=== PATIENT | male | born 1955 | race Caucasian/White ===

== ENCOUNTER 2020-06-13 16:44 | Observation (INO) | payer OTHER, MEDICARE ==
[~2020-06-13] VITALS: Ht 180.3 cm; Wt 131.5 kg
[2020-06-13] MEDS ORDERED: ALBU90OI INH (17:20)
[2020-06-13] MEDS ORDERED: ASCO500 PO (17:21)
[2020-06-13] MEDS ORDERED: CARV3.125 PO (17:21)
[2020-06-13] MEDS ORDERED: ATOR80 PO (17:21)
[2020-06-13] MEDS ORDERED: ELIQUIS5 MG PO (17:21)
[2020-06-13] MEDS ORDERED: ZYRTEC10 M2 PO (17:22)
[2020-06-13] MEDS ORDERED: Vitamin D2000 UNIT PO (17:22)
[2020-06-13] MEDS ORDERED: JARDIANCE25 MG PO (17:23)
[2020-06-13] MEDS ORDERED: FERSU300 PO (17:23)
[2020-06-13] MEDS ORDERED: CYAN500 PO (17:23)
[2020-06-13] MEDS ORDERED: FURO20 PO (17:24)
[2020-06-13] MEDS ORDERED: GABA300 PO (17:24)
[2020-06-13] MEDS ORDERED: FOLI1 PO (17:24)
[2020-06-13] MEDS ORDERED: OMEP20ER PO (17:26)
[2020-06-13] MEDS ORDERED: METF500 PO (17:26)
[2020-06-13] MEDS ORDERED: LISI20 PO (17:26)
[2020-06-13] MEDS ORDERED: TRAZ100 PO (17:27)
[2020-06-13] MEDS ORDERED: POTCHL20ER PO (17:27)
[2020-06-13] MEDS ORDERED: VENL150ER PO (17:27)
[2020-06-13] MEDS ORDERED: BASAGLAR K100 UNIT/1 SC ×2 (18:00→18:01)
[2020-06-13] MEDS ORDERED: NOVOLOG FL100 UNIT/3 SC (18:00)
[2020-06-13] MEDS ORDERED: Naltrexone HCl50 MG PO (18:01)
[2020-06-13] MEDS ORDERED: OZEMPIC0.25 MG/0. SC (18:02)
[2020-06-13 18:07] LABS: BASOPHILS ABSOLUTE AUTO 0.04 K/mm3 (0.00-0.23); BASOPHILS PERCENT AUTO 0 % (0-2); EOSINOPHILS ABSOLUTE AUTO 0.09 K/mm3 (0.00-0.68); EOSINOPHILS PERCENT AUTO 1 % (0-6); Hematocrit 47.9 % (37.0-53.0); Hemoglobin 15.4 g/dL (13.5-17.5); IMMATURE GRAN ABSOLUTE AUTO 0.04 K/mm3 (0.00-0.10); IMMATURE GRAN PERCENT AUTO 0 % (0-1); LYMPHOCYTES ABSOLUTE AUTO 1.51 K/mm3 (0.84-5.20); LYMPHOCYTES PERCENT AUTO 15 % (21-46); MONOCYTES ABSOLUTE AUTO 0.81 K/mm3 (0.16-1.47); MONOCYTES PERCENT AUTO 8 % (4-13); Mean Corpuscular HGB 30.4 pg (26.0-34.0); Mean Corpuscular HGB Conc 32.2 g/dL (31.5-36.5); Mean Corpuscular Volume 95 fL (80-100); Mean Platelet Volume 10.9 fL (9.1-12.4); NEUTROPHILS ABSOLUTE AUTO 7.69 K/mm3 (1.96-9.15); NEUTROPHILS PERCENT AUTO 76 % (41-73); Platelet Count 244 K/mm3 (150-400); RDW Coefficient Variation 14.6 % (11.7-14.2); RDW Standard Deviation 50.3 fL (35.1-46.3); Red Blood Cell Count 5.06 M/mm3 (4.30-5.90); White Blood Cell Count 10.18 K/mm3 (4.00-11.30)
[2020-06-13 18:24] LABS: Alanine Aminotransfer (ALT/SGP 17 U/L (12-78); Albumin, Blood 2.7 g/dL (3.4-5.0); Albumin/Globulin Ratio 0.6 (0.8-1.8); Alk Phos 198 U/L (50-136); Anion Gap 9 mmol/L (6-16); Aspartate Aminotrans (AST/SGOT 10 U/L (12-37); Bilirubin, Total 1.1 mg/dL (0.1-1.0); Blood Urea Nitrogen 10 mg/dL (8-24); Bun/Creatinine Ratio 12.4 (12.0-20.0); CO2, Blood 24 mmol/L (21-32); Calcium, Blood 9.2 mg/dL (8.5-10.1); Chloride, Blood 102 mmol/L (98-108); Creatinine, Blood 0.81 mg/dL (0.60-1.20); Globulin, Blood 4.7 g/dL (2.2-4.0); Glomerular Filtration Rate >60 (60-); Glucose, Blood 273 mg/dL (70-99); Potassium, Blood 4.1 mmol/L (3.5-5.5); Sodium, Blood 135 mmol/L (136-145); Total Protein, Blood 7.4 g/dL (6.4-8.2)
[2020-06-13 23:31] LABS: Influenza A, PCR Negative (NEGATIVE); Influenza B, PCR Negative (NEGATIVE); Resp Syncytial Virus, PCR Negative (NEGATIVE); SARS-Cov-2 (COVID-19) PCR, MMC Negative (NEGATIVE)
--- NOTE | 2020-06-14 03:58 | NUR ---
SHIFT SUMMARY: PT ADMITTED TO MEDICAL UNIT FROM [facility] FOR NECROTIC GANGRENOUS 2ND TOE ON R FOOT. PHOTOS TAKEN OF TOE AND PLACED IN PT CHART. AA0X4. DENIES PAIN. AMB USING A FWW. WEARING CPAP, 2L 02 BLEED IN DUE TO 02 DROPPING TO 86% WITHOUT. RT AWARE. PT HAS A WHEEZY SOUNDING COUGH, PRODUCTIVE BUT SPUTUM UNOBSERVED. LS CLEAR ON THE L, DIM ON THE RIGHT, W/CLEAR R BASE. CHEST RISE SYMMETRICAL AND NO TRACHEAL DEVIATION. IV ABT INFUSED PER ORDERS. PT APPEARS TO BE SLEEPING WELL. NO ACUTE CHANGES AT THIS TIME. WILL CONT TO MONITOR.
[2020-06-14 04:56] LABS: BASOPHILS ABSOLUTE AUTO 0.05 K/mm3 (0.00-0.23); BASOPHILS PERCENT AUTO 1 % (0-2); EOSINOPHILS ABSOLUTE AUTO 0.23 K/mm3 (0.00-0.68); EOSINOPHILS PERCENT AUTO 3 % (0-6); Hematocrit 45.3 % (37.0-53.0); IMMATURE GRAN ABSOLUTE AUTO 0.02 K/mm3 (0.00-0.10); IMMATURE GRAN PERCENT AUTO 0 % (0-1); LYMPHOCYTES ABSOLUTE AUTO 2.32 K/mm3 (0.84-5.20); LYMPHOCYTES PERCENT AUTO 27 % (21-46); MONOCYTES ABSOLUTE AUTO 0.87 K/mm3 (0.16-1.47); MONOCYTES PERCENT AUTO 10 % (4-13); Mean Corpuscular HGB 29.4 pg (26.0-34.0); Mean Corpuscular HGB Conc 30.9 g/dL (31.5-36.5); Mean Corpuscular Volume 95 fL (80-100); Mean Platelet Volume 10.6 fL (9.1-12.4); NEUTROPHILS ABSOLUTE AUTO 5.02 K/mm3 (1.96-9.15); NEUTROPHILS PERCENT AUTO 59 % (41-73); Platelet Count 238 K/mm3 (150-400); RDW Coefficient Variation 14.4 % (11.7-14.2); RDW Standard Deviation 50.7 fL (35.1-46.3); Red Blood Cell Count 4.76 M/mm3 (4.30-5.90); White Blood Cell Count 8.51 K/mm3 (4.00-11.30)
[2020-06-14 05:09] LABS: International Normalized Ratio 1.04; Prothrombin Time Results 11.1 Sec (9.7-11.5)
[2020-06-14 05:28] LABS: Alanine Aminotransfer (ALT/SGP 13 U/L (12-78); Albumin, Blood 2.3 g/dL (3.4-5.0); Albumin/Globulin Ratio 0.5 (0.8-1.8); Alk Phos 174 U/L (50-136); Anion Gap 7 mmol/L (6-16); Aspartate Aminotrans (AST/SGOT 13 U/L (12-37); Blood Urea Nitrogen 12 mg/dL (8-24); Bun/Creatinine Ratio 15.4 (12.0-20.0); CO2, Blood 25 mmol/L (21-32); Calcium, Blood 8.9 mg/dL (8.5-10.1); Chloride, Blood 106 mmol/L (98-108); Creatinine, Blood 0.78 mg/dL (0.60-1.20); Globulin, Blood 4.2 g/dL (2.2-4.0); Glomerular Filtration Rate >60 (60-); Glucose, Blood 196 mg/dL (70-99); Potassium, Blood 3.7 mmol/L (3.5-5.5); Sodium, Blood 138 mmol/L (136-145); Total Protein, Blood 6.5 g/dL (6.4-8.2)
--- NOTE | 2020-06-14 18:09 | NUR ---
SHIFT SUMMARY PT ADMITTED FOR GANGRENOUS TOE RELATED TO DIABETES. TOE CURRENTLY OPEN TO AIR. PT IS IND WITH A FWW IN THE ROOM. PT HAD ULTRASOUND AND EKG TODAY. EKG SHOWED AFLUTTER. DR. DENSON AWARE. PT TO HAVE SURGERY TOMORROW TO AMPUTATE NECROTIC TOE TOMORROW AT 1230. PT NPO AT MIDNIGHT. VSS; CURRENTLY RESTING IN BED WITH CALL LIGHT IN REACH.
[2020-06-15 05:08] LABS: BASOPHILS ABSOLUTE AUTO 0.05 K/mm3 (0.00-0.23); BASOPHILS PERCENT AUTO 1 % (0-2); EOSINOPHILS ABSOLUTE AUTO 0.24 K/mm3 (0.00-0.68); EOSINOPHILS PERCENT AUTO 3 % (0-6); Hematocrit 43.5 % (37.0-53.0); Hemoglobin 13.7 g/dL (13.5-17.5); IMMATURE GRAN ABSOLUTE AUTO 0.02 K/mm3 (0.00-0.10); IMMATURE GRAN PERCENT AUTO 0 % (0-1); LYMPHOCYTES PERCENT AUTO 26 % (21-46); MONOCYTES ABSOLUTE AUTO 0.65 K/mm3 (0.16-1.47); MONOCYTES PERCENT AUTO 9 % (4-13); Mean Corpuscular HGB 29.7 pg (26.0-34.0); Mean Corpuscular HGB Conc 31.5 g/dL (31.5-36.5); Mean Corpuscular Volume 94 fL (80-100); Mean Platelet Volume 10.6 fL (9.1-12.4); NEUTROPHILS PERCENT AUTO 61 % (41-73); Platelet Count 261 K/mm3 (150-400); RDW Coefficient Variation 14.3 % (11.7-14.2); RDW Standard Deviation 49.2 fL (35.1-46.3); Red Blood Cell Count 4.61 M/mm3 (4.30-5.90); White Blood Cell Count 7.66 K/mm3 (4.00-11.30)
[2020-06-15 05:26] LABS: Anion Gap 6 mmol/L (6-16); Blood Urea Nitrogen 14 mg/dL (8-24); CO2, Blood 27 mmol/L (21-32); Calcium, Blood 8.8 mg/dL (8.5-10.1); Chloride, Blood 105 mmol/L (98-108); Creatinine, Blood 0.78 mg/dL (0.60-1.20); Glomerular Filtration Rate >60 (60-); Glucose, Blood 117 mg/dL (70-99); Potassium, Blood 3.9 mmol/L (3.5-5.5); Sodium, Blood 138 mmol/L (136-145)
--- NOTE | 2020-06-15 07:27 | NUR ---
SHIFT SUMMARY: VSS. AFEB. AA0X4. COMMUNICATES NEEDS. NECROTIC GANGRENOUS TOE ON R FOOT SAP ADMINISTRATOR, NO DRAINAGE. R FOOT APPEARS TO BE SLIGHTLY MORE SWOLLEN THAN THE L. ERTYTHEMA AT THE BASE OF THE AFFECTED TOE. PT DENIES PAIN. SLEEPING WELL. NO ACUTE CHANGES.
--- NOTE | 2020-06-15 08:58 | NUR ---
CALLED DR DESOUZA- PT PLANNED FOR PROCEDURE TODAY. NO PRE-PROCEDURE ABX ORDERED AT THIS TIME ALSO TO DETERMINE WHEN TO HOLD THE HEPARIN SHOULD BE HELD. PT CURRENTLY NPO. NO ANSWER FROM AT THIS TIME LEFT MESSAGE AWAITING A CALL BACK.
--- NOTE | 2020-06-15 09:30 | NUR ---
spoke to dr juan recieved order to hold heparin until post op. stated planned time was around 1200 today called day surgery with the update, report from them was planned time of after 5pm. they are aware of the new plan.
--- NOTE | 2020-06-15 12:30 | NUR ---
INTO SDS VIA GURN FROM MED ROOM. History, Chart, Medications and Allergies reviewed before start of procedure.Patient confirms NPO status and agrees with scheduled surgery.BILATERAL EXPIRATORY WHEEZES THROUGHOUT. RIGHT SECOND TOE OPEN TO AIR.
--- NOTE | 2020-06-15 13:16 | NUR ---
REPORT GIVEN TO CHAPO JONES
--- NOTE | 2020-06-15 16:18 | NUR ---
CALLED DR DESOUZA- PT TOES HAVE A REDUCED CAP REFILL UNABLE TO DETERMINE IF THE PT THIRD TOE HAS ANY CAP REFILL IT IS CRABTREE AND DUSKY IN APPEARANCE. DR WILL COME TO EVALUATE.
--- NOTE | 2020-06-15 18:35 | NUR ---
SHIFT SUMMARY- PT HAD ANAMPITATION OF THE SECOND TOE ON THE RLE. PT THIRD TOE POST OP APPEARED TO BE DUSKY WITH NO CAP REFILL. CALLED DR DESOUZA ANDHE CAME TO SEE THE PT. WHEN HE ARRIVED THE PT TOE WAS WARM AND PINK WITH A CAP REFILL OF 9 SECONDS, THIS IS ACCEPTABLE AT THIS TIME. STATED IF THERE IS A PROBLEN NURSES CAN LOOSEN THE CHERRY WRAP. GREATER TOE HAS A CAP REFILL OF ABOUT [address] DESOUZA IS AWARE. RECIEVED ORDER FOR DR TORRES CONSULT, CALLED DR TORRES AND HE WILL COME TO SEE THE PT HOWEVER HE WILL NOT BE BACK IN TOWN UNTIL THURSDAY. POST OP VITALS ARE STABLE AT THIS TIME WILL CTM AND PASS ON IN REPORT TO NIGHT RN.
--- NOTE | 2020-06-16 03:56 | NUR ---
SHIFT SUMMARY PATIENT HAD NO ACUTE CHANGES OBSERVED. DENIES PAIN FROM RIGHT FOOT 2ND TOE AMPUTATION. AXOX 3 AND HEEL TOUCH TO BS WITH ONE ASSIST. PIV REMAINS INTACT. CBG 110. DENIES SOB AND N/V. VSS/AFEBRILE. PATIENT ABLE TO REST. ON CONTINUOUS PULSE OXIMETRY STATING 90% ON ROOM AIR. CALL LIGHT IN REACH. BED IN LOWEST POSITION. WILL CONTINUE TO MONITOR UNTIL DAY SHIFT NURSE ASSUMES CARE.
[2020-06-16] MEDS ORDERED: HUMALOG KW100 UNIT/1 SC (10:58)
[2020-06-16] MEDS ORDERED: NICO21TP TOP (10:59)
--- NOTE | 2020-06-16 11:29 | NUR ---
DR DESOUZA CHANGED THE PT WOUND DRESSINGS. ASKED BEDSIDE RN TO SCHEDULE APPOINTMENT WITH HIS OFFICE NEXT WEEK. CALLED ANSWERING SERVICE AND LEFT A MESSAGE, PER DR DESOUZA'S INSTRUCTION, STAFF AT HIS OFFICE SHOULD CALL PT WITH HIS APPOINTMENT DATE AND TIME. PT AWARE.
--- NOTE | 2020-06-16 11:45 | NUR ---
DISCHARGE NOTE- PT WAS GIVEN VERBAL AND WRITTEN DISCHARGE INSTRUCTIONS AND ACKNOWLEDGED UNDERSTANDING OF THEM. PT WAS INFORMED OF THE IMPORTANCE OF QUITTING SMOKING FOR HIS FUTURE HEALTH. PT AGREED THIS IS IMPORTANT AND STATED HE HAS HAD A LIFELONG ADDICTION TO NICOTIENE, HIS MOTHER USED CHEW WHILE SHE CARRIED HIM. PT AGREED THAT HE SHOULD QUIT. IV DC'D AT THE TIME OF DISCHARGE INSTRUCTION, PT ROOMATE WAS CALLED AND ASKED TO BRING THE PT WALKER AND COME TO PICK HIM UP. HE STATED IT WOULD BE A LITTLE MORE THAN AN HOUR BEFORE HE GETS HERE. PT WILL BE ESCORTED OUT VIA WC BY A STAFF MEMBER.
== END 2020-06-16 12:21 | disposition home or self-care (01) ==
LOC: ER 16:44 → MEDS 16:45 → SURS 16:45 → MEDS 16:46 → ER 20:49 → EDBD 20:49 → SURS 20:49 → MEDS 20:49 → SURS 20:58 → MEDS 20:58
PROVIDERS: Emergency Medicine; Internal Medicine; ADMIT Internal Medicine
DX: E11.52 Type 2 diabetes mellitus with diabetic peripheral angiopathy with gangrene (principal); I96 Gangrene, not elsewhere classified; E11.628 Type 2 diabetes mellitus with other skin complications; E11.65 Type 2 diabetes mellitus with hyperglycemia; L03.031 Cellulitis of right toe; E11.69 Type 2 diabetes mellitus with other specified complication; M86.8X8 Other osteomyelitis, other site; I10 Essential (primary) hypertension; I25.2 Old myocardial infarction; J44.9 Chronic obstructive pulmonary disease, unspecified; F17.210 Nicotine dependence, cigarettes, uncomplicated; I48.0 Paroxysmal atrial fibrillation; I48.92 Unspecified atrial flutter; I51.7 Cardiomegaly; F17.200 Nicotine dependence, unspecified, uncomplicated; K21.9 Gastro-esophageal reflux disease without esophagitis; I25.10 Atherosclerotic heart disease of native coronary artery without angina pectoris; E66.01 Morbid (severe) obesity due to excess calories; Z68.41 Body mass index [BMI] 40.0-44.9, adult; Z88.0 Allergy status to penicillin; Z88.1 Allergy status to other antibiotic agents; Z91.030 Bee allergy status; Z79.01 Long term (current) use of anticoagulants; Z79.4 Long term (current) use of insulin; Z79.899 Other long term (current) drug therapy; Z20.828 Contact with and (suspected) exposure to other viral communicable diseases; Z23 Encounter for immunization
CPT/HCPCS: 0241U; 36415; 73620; 80048; 80053; 82947; 85025; 85610; 85651; 86140; 87070; 87075; 87077; 87186; 87205; 93005; 93010; 93922; 94660; 94762; 96365; 96372; 96375; 99285-25; A9270; A9270-GY; G0378; J0690; J1644; J2250; J2704; J7120